=== PATIENT | female | born 2000 | race Two or more races ===

== ENCOUNTER 2020-04-13 13:19 | Emergency (ER) | payer MEDICAID, SELFPAY ==
[2020-04-13 14:59] VITALS: BP 123/67; PULSE 93; RESP 18; TEMP 36.8; O2SAT 99; BMI 41.5
--- NOTE | 2020-04-13 16:39 | ED.FEMALEGU ---
HPI - Female Genitourinary General Chief complaint: Vaginal Bleeding Stated complaint: VAGINAL BLEED Time Seen by Provider: 04/13/20 16:03 Source: patient Mode of arrival: ambulatory Limitations: no limitations History of Present Illness HPI Narrative: Patient is a 20-year-old female with no significant past medical history who says she has had bleeding for the last 6 weeks with many clots she states the flow is heavy with clots and then will be very light the next day and waxes and wanes. She denies any abdominal pain, abnormal discharge or fevers. She states she has been extremely fatigued for the last few days. She spoke with her ob-prototype fabricator doctor and he recommended she come in for an evaluation. She does not use control and states her and her are trying to get but she has been unsuccessful. Denies any knowledge of current . She believes she is in a monogamous relationship with her but would like to be tested for STIs today, just in case . She denies any urinary symptoms nausea vomiting or diarrhea. Related Data Allergies Allergy/AdvReac Type Severity Reaction Status Date / Time No Known Allergies Allergy Verified 04/13/20 14:57 [No Known Allergies*] Review of Systems Review of Systems: Yes all other systems are reviewed and are negative [facility] Past Medical History Medical History No known health problems Social History Social History Alcohol intake: never Smoking Status: Never smoker Use of substances other than those prescribed or required for medical reasons: Yes Substance Use Type: Marijuana Advance Directives: No Advance Directives Information Provided: No Physical Exam Vital Signs: Vital Signs: Last Vital Signs Temp 98.5 F 04/13/20 17:30 Pulse 92 04/13/20 17:30 Resp 20 04/13/20 17:30 BP 118/69 04/13/20 17:30 Pulse Ox 98 04/13/20 17:30 Body Mass Index 41.5 Const: General: cooperative, healthy appearing, comfortable and no acute distress Nutritional Appearance: obese Orientation/consciousness: patient oriented x3 Limitations: no limitations Eyes: General: appearance normal, both eyes and all related structures Neck: Neck: Yes normal visual inspection, Yes full ROM and Yes supple Resp: Effort & Inspection: normal respiratory effort and able to speak in complete sentences GI: Inspection: Yes obesity Palpation (GI): Soft to palpation and nontender Auscultation: normal bowel sounds : External Female Exam: normal external appearance and normal appearance of the urethra Speculum Exam - Vagina: normal appearance of the vagina, normal vaginal discharge and vaginal bleeding (scant) Speculum Exam - Cervix: normal appearance of the cervix Skin: General skin exam: no rashes or lesions noted Neuro: General: patient oriented x3 Extrem: General: Yes normal to inspection, Yes full ROM and Yes no pedal edema MDM - Female Genitourinary Lab Data Result diagrams: 04/13/20 17:28 04/13/20 17:27 Labs: Lab Results 04/13/20 04/13/20 04/13/20 Range/Units 17:27 17:27 17:28 WBC 16.1 H (4.8-10.8) X10*3/uL RBC 4.91 (4.20-5.50) X10*6/uL Hgb 13.2 (12.0-16.0) g/dl Hct 41.0 (37-47) % MCV 83.5 (80-98) fL MCH 26.9 L (27.0-33.0) pg MCHC 32.2 (31.0-35.0) g/dl RDW 13.7 (11.0-16.0) % Plt Count 400 (160-400) X10*3/uL MPV 9.2 L (9.4-12.3) fL Immature Gran % (Auto) 0.3 (0.0-0.4) % Neut % (Auto) 62.5 (45-73) % Lymph % (Auto) 31.7 (20-40) % [place] % (Auto) 4.3 (2-11) % Eos % (Auto) 1.0 (0-4) % Baso % (Auto) 0.2 (0-2) % Lymph # (Auto) 5.1 H (1.2-4.9) X10*3/uL [place] # (Auto) 0.7 (0.1-1.2) X10*3/uL Eos # (Auto) 0.2 (0.0-0.4) X10*3/uL Baso # (Auto) 0.0 (0.0-0.2) X10*3/uL Abs Immat Gran (auto) 0.05 H (0.00-0.03) X10*3/uL Absolute Neuts (auto) 10.0 H (2.0-8.3) X10*3/uL Absolute Nucleated RBC 0.000 (0.0-0.012) X10*3/uL Nucleated RBC % (auto) 0.0 (0.0-0.2) /100WBC Smear Tech's Comments VERIFIED Sodium 138 (135-145) mmol/L Potassium 4.3 (3.3-5.1) mmol/L Chloride 105 (96-108) mmol/L Carbon Dioxide 24 (22-29) mmol/L Anion Gap 13 (12-20) BUN 11 (9-16) mg/dL Creatinine 0.56 (0.5-1.4) mg/dL Estim Creat Clear Calc 213.3 Estimated GFR > 60 Random Glucose 77 (60-115) mg/dL Calcium 9.3 (8.4-10.2) mg/dL Beta HCG, Quant < 2 mIU/mL Urine Test (NEGATIVE) Blood Type O Positive Antibody Screen NEGATIVE 04/13/20 Range/Units 17:28 WBC (4.8-10.8) X10*3/uL RBC (4.20-5.50) X10*6/uL Hgb (12.0-16.0) g/dl Hct (37-47) % MCV (80-98) fL MCH (27.0-33.0) pg MCHC (31.0-35.0) g/dl RDW (11.0-16.0) % Plt Count (160-400) X10*3/uL MPV (9.4-12.3) fL Immature Gran % (Auto) (0.0-0.4) % Neut % (Auto) (45-73) % Lymph % (Auto) (20-40) % [place] % (Auto) (2-11) % Eos % (Auto) (0-4) % Baso % (Auto) (0-2) % Lymph # (Auto) (1.2-4.9) X10*3/uL [place] # (Auto) (0.1-1.2) X10*3/uL Eos # (Auto) (0.0-0.4) X10*3/uL Baso # (Auto) (0.0-0.2) X10*3/uL Abs Immat Gran (auto) (0.00-0.03) X10*3/uL Absolute Neuts (auto) (2.0-8.3) X10*3/uL Absolute Nucleated RBC (0.0-0.012) X10*3/uL Nucleated RBC % (auto) (0.0-0.2) /100WBC Smear Tech's Comments Sodium (135-145) mmol/L Potassium (3.3-5.1) mmol/L Chloride (96-108) mmol/L Carbon Dioxide (22-29) mmol/L Anion Gap (12-20) BUN (9-16) mg/dL Creatinine (0.5-1.4) mg/dL Estim Creat Clear Calc Estimated GFR Random Glucose (60-115) mg/dL Calcium (8.4-10.2) mg/dL Beta HCG, Quant mIU/mL Urine Test NEGATIVE (NEGATIVE) Blood Type Antibody Screen Discharge Plan Discharge Clinical Impression: Vaginal bleeding Patient Disposition: Home, Self-Care Instructions: Dysfunctional Uterine Bleeding (ED) Additional Instructions: Your blood levels are within normal limits, please continue to monitor your bleeding and if your soaking more than a pad an hour, please return to the emergency department. Today, we have tested you for gonorrhea, chlamydia, bacterial vaginosis, yeast and Trichomonas, if any of these tests are positive we will call you and send in prescriptions. If you do not receive a phone call, it means all of these tests are negative. Please be sure to follow-up with your manufacturing mechanic regarding your bleeding. Also, as we discussed, you should start taking folic acid and vitamin daily if you are trying to become . Your manufacturing mechanic or primary care doctor can prescribe the folic acid for you. Interventions: ED Discharge Assessment Last Done: 04/13/20 18:41
[2020-04-13 17:30] VITALS: BP 118/69; PULSE 92; RESP 20; TEMP 36.9; O2SAT 98
[2020-04-13 17:42] LABS: Basophils Percent Auto 0.2 % (0-2); Eosinophils Absolute Auto 0.2 X10*3/uL (0.0-0.4); Hemoglobin 13.2 g/dl (12.0-16.0); Imm Gran Abs Auto 0.05 X10*3/uL (0.00-0.03); Imm Gran Pct Auto 0.3 % (0.0-0.4); Lymphocytes Absolute Auto 5.1 X10*3/uL (1.2-4.9); Lymphocytes Percent Auto 31.7 % (20-40); MANUAL DIFF FLAG SCAN; Mean Corpuscular HGB Conc 32.2 g/dl (31.0-35.0); Mean Corpuscular Hemoglobin 26.9 pg (27.0-33.0); Mean Corpuscular Volume 83.5 fL (80-98); Mean Platelet Volume 9.2 fL (9.4-12.3); Monocytes Absolute Auto 0.7 X10*3/uL (0.1-1.2); Monocytes Percent Auto 4.3 % (2-11); Neutrophils Percent Auto 62.5 % (45-73); Platelet Count 400 X10*3/uL (160-400); Red Blood Count 4.91 X10*6/uL (4.20-5.50); Red Cell Distribution Width 13.7 % (11.0-16.0); SCAN SMEAR FLAG 1; White Blood Count 16.1 X10*3/uL (4.8-10.8)
[2020-04-13 17:43] LABS: UPreg QC Valid YES; Urine Pregnancy NEGATIVE (NEGATIVE)
[2020-04-13 18:01] LABS: SLIDE REVIEW VERIFIED
[2020-04-13 18:13] LABS: Anion Gap 13 (12-20); Blood Urea Nitrogen 11 mg/dL (9-16); Calcium 9.3 mg/dL (8.4-10.2); Carbon Dioxide 24 mmol/L (22-29); Chloride 105 mmol/L (96-108); Creatinine Clr Calc Pharmacy 213.3; Estimated Glomerular Filt Rate > 60; Glucose Random 77 mg/dL (60-115); Potassium 4.3 mmol/L (3.3-5.1); Sodium 138 mmol/L (135-145)
[2020-04-13 18:24] LABS: HCG Quantitative < 2 mIU/mL
[2020-04-14 11:28] LABS: BV Int Neg Control Negative (Negative); BV Int Pos Control Positive (Positive)
[2020-04-16 17:21] LABS: C. trachomatis RNA TMA NOT DETECTED (NOT DETECTED); N. gonorrhoeae RNA TMA NOT DETECTED (NOT DETECTED)
== END 2020-04-13 18:58 | disposition home or self-care (01) ==
PROVIDERS: Physician Assistant; Emergency Provider Emergency Medicine Emergency Medical Services
DX: N93.8 Other specified abnormal uterine and vaginal bleeding (principal); Z20.2 Contact with and (suspected) exposure to infections with a predominantly sexual mode of transmission
CPT/HCPCS: 36415; 80048; 81025; 84702; 85025; 86850; 86900; 86901; 87480; 87491; 87510; 87591; 87660; 99283; 99284

== ENCOUNTER 2021-09-10 15:44 | Emergency (ER) | payer MEDICAID, SELFPAY ==
[2021-09-10 16:18] VITALS: BP 152/90; PULSE 88; O2SAT 100
== END 2021-09-10 22:03 | disposition left against medical advice (07) ==
PROVIDERS: Emergency Provider Emergency Medicine
DX: R10.9 Unspecified abdominal pain (principal)

== ENCOUNTER 2021-09-11 10:11 | Emergency (ER) | payer OTHER, SELFPAY ==
--- NOTE | ~2021-09-11 | US_ITS ---
EXAMINATION: US PELVIS CLINICAL INFORMATION: Right-sided abdominal pain, right adnexal cyst COMPARISON: CT from 09/11/2021 TECHNIQUE: Ultrasound of the pelvis is performed using both transabdominal and transvaginal transducers along with Doppler. Transvaginal imaging is performed due to inadequate visualization transabdominally. FINDINGS: Uterus: The uterus is retroverted and measures 8.0 x 3.6 x 5.9 cm. Parenchymal echotexture is homogeneous. No discrete mass lesion seen. The double wall endometrial thickness is 9 mm. Adnexa: Both ovaries are visualized. There is normal color flow to the adnexa. There is no ovarian torsion. There is no pelvic ascites There is a cystic tubular structure with anechoic fluid in the right adnexa concerning for hydrosalpinx Right ovary measures 4.0 x 1.8 x 3.0 cm. Right ovary appears sonographically normal Left ovary measures 3.3 x 2.5 x 2.9 cm. Left ovary appears sonographically normal US/US pelvic and transvaginal IMPRESSION: Dilated cystic tubular structure in the right adnexa with a anechoic fluid concerning for right hydrosalpinx. The right ovary appears normal. No complex fluid collection is seen otherwise. Uterus and left ovary are normal
--- NOTE | ~2021-09-11 | US_ITS ---
EXAMINATION: US PELVIS CLINICAL INFORMATION: Right-sided abdominal pain, right adnexal cyst COMPARISON: CT from 09/11/2021 TECHNIQUE: Ultrasound of the pelvis is performed using both transabdominal and transvaginal transducers along with Doppler. Transvaginal imaging is performed due to inadequate visualization transabdominally. FINDINGS: Uterus: The uterus is retroverted and measures 8.0 x 3.6 x 5.9 cm. Parenchymal echotexture is homogeneous. No discrete mass lesion seen. The double wall endometrial thickness is 9 mm. Adnexa: Both ovaries are visualized. There is normal color flow to the adnexa. There is no ovarian torsion. There is no pelvic ascites There is a cystic tubular structure with anechoic fluid in the right adnexa concerning for hydrosalpinx Right ovary measures 4.0 x 1.8 x 3.0 cm. Right ovary appears sonographically normal Left ovary measures 3.3 x 2.5 x 2.9 cm. Left ovary appears sonographically normal US/US pelvic ovarian doppler IMPRESSION: Dilated cystic tubular structure in the right adnexa with a anechoic fluid concerning for right hydrosalpinx. The right ovary appears normal. No complex fluid collection is seen otherwise. Uterus and left ovary are normal
--- NOTE | ~2021-09-11 | CT_ITS ---
EXAMINATION: CT ABDOMEN AND PELVIS WITHOUT CONTRAST CLINICAL INFORMATION: Right flank pain. COMPARISON: September 13, 2015. TECHNIQUE: Multidetector volumetric imaging was performed from the superior aspect of the liver through the pubic symphysis. Sagittal and coronal reformatted images were obtained on the technologist's workstation. This CT examination was performed using dose optimization techniques as appropriate, variously including the following: *Automated exposure control *Adjustment of mA and/or kV according to patient size (this includes techniques or standardized protocols for targeted exams where dose is matched to indication/reason for exam; i.e. extremities or head) *Use of iterative reconstruction technique DLP: 964 mGy-cm FINDINGS: LUNG BASES: The visualized lung bases appear unremarkable. LIVER, GALLBLADDER, AND BILIARY TREE: Diffusely hypodense liver parenchyma, consistent with fatty infiltration. The liver appears unremarkable in size and shape. No focal hepatic lesion or biliary ductal dilatation is appreciated. Unremarkable appearance of the gallbladder. PANCREAS: Unremarkable. SPLEEN: Unremarkable. ADRENAL GLANDS: Unremarkable. KIDNEYS AND URETERS: The kidneys appear unremarkable in size, shape, and attenuation. No hydronephrosis, hydroureter, or calculi seen. BLADDER: Collapsed, therefore suboptimally evaluated. Grossly unremarkable. GASTROINTESTINAL TRACT: The small and large bowel appear unremarkable. ABDOMINAL WALL: No significant hernia is appreciated. LYMPH NODES: Normal. VASCULAR: Unremarkable. PELVIC VISCERA: Approximately 4.4 x 3.8 x 2.5 cm, ovoid, homogeneous, fluid-density structure in the right adnexal region demonstrating significant induration of surrounding fat. In retrospect, this structure was probably present in 2015, at which time it measured approximately 3.4 x 1.4 x 1.2 cm and did not demonstrate induration of surrounding fat. This structure appears separate from the ovary, and only obliquely appears to contact the sigmoid colon. It does not clearly appear contiguous with the appendix. Peritoneal cavity: No evidence of free intraperitoneal fluid or air. OSSEOUS STRUCTURES: Unremarkable. CT/CT abdomen pelvis wo con IMPRESSION: Approximately 4.4 x 3.8 x 2.5 cm, ovoid, homogeneous, fluid-density structure in the right adnexal region demonstrating significant induration of surrounding fat, consistent with an acute inflammatory process, as detailed above. The exact etiology of this finding is uncertain. Differential diagnosis includes, but is not limited to, tubo-ovarian abscess, diverticulitis with secondary infection of previously existing cystic structure, etc.
[2021-09-11 10:53] VITALS: BP 117/79; PULSE 97; RESP 18; TEMP 36.3; O2SAT 98; BMI 40.6
[2021-09-11 11:12] LABS: MANUAL DIFF FLAG NO
[2021-09-11 11:17] LABS: Basophils Percent Auto 0.2 % (0-2); Eosinophils Absolute Auto 0.1 X10*3/uL (0.0-0.4); Eosinophils Percent Auto 0.5 % (0-4); Imm Gran Abs Auto 0.04 X10*3/uL (0.00-0.03); Imm Gran Pct Auto 0.3 % (0.0-0.4); Lymphocytes Absolute Auto 3.4 X10*3/uL (1.2-4.9); Lymphocytes Percent Auto 22.3 % (20-40); Mean Corpuscular HGB Conc 31.7 g/dl (31.0-35.0); Mean Corpuscular Hemoglobin 25.2 pg (27.0-33.0); Mean Corpuscular Volume 79.5 fL (80.0-98.0); Mean Platelet Volume 8.7 fL (9.4-12.3); Monocytes Absolute Auto 0.9 X10*3/uL (0.1-1.2); Monocytes Percent Auto 5.8 % (2-11); Neutrophils Absolute Auto 10.9 x10*3/uL (2.0-8.3); Neutrophils Percent Auto 70.9 % (45-73); Platelet Count 439 X10*3/uL (160-400); Red Blood Count 5.16 X10*6/uL (4.20-5.50); White Blood Count 15.4 X10*3/uL (4.8-10.8)
[2021-09-11 11:20] LABS: Appearance Urine HAZY; Color Urine YELLOW; Glucose Urine UA NEG (NEG); Leukocyte Esterase Urine NEG (NEG); Nitrite Urine NEG (NEG); Specific Gravity - Urine 1.025 (1.005-1.025); UACC Culture Trigger NO; Urine Blood NEG (NEG); Urine Ketones 15 MG/DL (NEG); Urine Protein 1+ MG/DL (NEG-TRACE)
--- NOTE | 2021-09-11 11:20 | ED_ITS ---
HPI - Abdominal Pain General Chief Complaint: Abdominal Pain Stated Complaint: leg pain, abd pain Time Seen by Provider: 09/11/21 11:18 Source: patient Mode of arrival: ambulatory Limitations: no limitations History of Present Illness HPI narrative: 21-year-old female previously healthy here with reports of right-sided flank and lower back pain with radiation to the right lower abdomen and down into the right leg the last 4 days which has some improvement with ibuprofen at home. Patient denies any nausea, vomiting, diarrhea, constipation, urinary symptoms, fevers or chills. Seen at urgent care yesterday referred into the emergency department for further evaluation. No previous surgical history. Related Data Previous Rx's Medication Instructions Recorded doxycycline monohydrate 100 mg 100 mg PO BID #14 tabs 09/11/21 tablet ibuprofen 800 mg tablet 800 mg PO Q6H PRN pain #30 tabs 09/11/21 metronidazole 500 mg tablet 500 mg PO BID 7 days #14 tabs 09/11/21 Allergies Allergy/AdvReac Type Severity Reaction Status Date / Time No Known Allergies Allergy Verified 09/11/21 10:53 [No Known Allergies*] Review of Systems Review of Systems Yes all other systems are reviewed and are negative Constitutional: Reports no additional constitutional complaints, Denies body ache(s), Denies chills, Denies fever(s), Denies headache(s) and Denies weakness Eyes: Reports no additional eye complaints and Denies change in vision Reports system reviewed and no additional complaints, except as documented, Denies dizziness, Denies headache(s), Denies nasal congestion, Denies nasal discharge and Denies neck pain Cardiovascular: Reports no additional cardiovascular complaints, Denies chest pain, Denies leg edema and Denies dyspnea Respiratory: Reports no additional respiratory complaints, Denies cough and Denies dyspnea Gastrointestinal: Reports no additional gastrointestinal complaints, Reports abdominal pain, Denies diarrhea, Denies nausea and Denies vomiting Genitourinary: Reports no additional female genitourinary complaints and Denies urinary incontinence Musculoskeletal: Reports no additional musculoskeletal complaints, Reports back pain, Denies arthralgias, Denies joint swelling, Denies neck pain, Denies numbness and Denies tingling Skin/Breast: Reports system reviewed and no additional complaints, except as docu and Denies rash Reports system reviewed and no additional complaints, except as documented, Denies dizziness, Denies headache(s), Denies numbness, Denies tingling and Denies weakness PMF Past Medical History Attestation statement: The following information was validated with the patient. Source: old records reviewed and nursing notes reviewed Medical History No known health problems Social History Social History Alcohol intake: never Substance Use Type: Marijuana Advance Directives: No Advance Directives Information Provided: Yes Physical Exam ED Vital Signs: Vital Signs - 24 hr 09/11/21 10:53 Temperature 97.4 F Pulse Rate 97 Respiratory Rate 18 Blood Pressure 117/79 Pulse Oximetry 98 Oxygen Delivery Method Room Air BMI result Body Mass Index 40.6 Const General: cooperative, healthy appearing, comfortable and no acute distress Orientation/consciousness: patient oriented x3 Limitations: no limitations HENMT Head: Yes normal to inspection Ears: hearing grossly normal bilaterally Eyes General: appearance normal, both eyes and all related structures Pupils: Equal, round and reactive pupils present Neck Neck: Yes normal visual inspection, Yes full ROM and Yes no lymphadenopathy Chest Chest palpation & inspection: normal inspection of the chest Resp Effort & Inspection: normal respiratory effort Auscultation: clear to auscultation bilaterally Cardio Rate: regular rate Rhythm: regular rhythm Peripheral pulses: Peripheral pulses 2+ throughout GI Inspection: Yes normal to inspection Palpation (GI): Soft to palpation and Tenderness to palpation present (GI) (Umbilicus, right lower quadrant-+ guarding no rebound) Auscultation: normal bowel sounds 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 Back: no CVA tenderness Skin General skin exam: no rashes or lesions noted Neuro General: patient oriented x3 and moves all extremities Cranial nerves: Yes CN's II-XII intact bilaterally, Yes Equal, round and reactive pupils present, Yes Bilaterally intact EOM present, Yes Nystagmus not present, Yes Normal facial strength present and Yes Midline tongue present Cognition (Neuro): normal cognition Gait exam (Neuro): Normal gait present Motor exam (neuro): 5/5 motor strength present throughout Sensory Exam: Normal double simultaneous stimulation for sensation Extrem General: Yes normal to inspection Course Reevaluation(s) Reevaluation #1: CT without contrast shows Approximately 4.4 x 3.8 x 2.5 cm, ovoid, homogeneous, fluid-density structure in the right adnexal region demonstrating significant induration of surrounding fat, consistent with an acute inflammatory process, as detailed above. The exact etiology of this finding is uncertain. Differential diagnosis includes, but is not limited to, tubo-ovarian abscess, diverticulitis with secondary infection of previously existing cystic structure, etc. Unclear network support technician versus General surgery origin. Will discuss with [facility]. With labs leukocytosis chronic. Otherwise labs unremarkable. UA shows no signs of infection Time: 14:40 Reevaluation #2: I spoke to Dr. Peter from Radiology. Recommended pelvic ultrasound i ncluding Dopplers to rule out torsion and to evaluate the adnexal mass further. Will also obtain a pelvic exam and send STI testing and speak to gynecology Reevaluation #3: [id number] shows a right hydrosalpinx. Patient will be treated prophylactically with ceftriaxone IM. I will send her home with doxycycline and Flagyl. I will recommend she follow up outpatient with gynecology. Pain is well controlled. Leukocytosis is chronic. No vomiting. She should return for any worrisome signs and symptoms MDM - Abdominal Pain MDM Narrative Medical decision making narrative: 21-year-old female here with 4 days of intermittent right-sided back pain with radiation down the right leg and into the right abdomen. No other associated symptoms. Normal neurological exam. No red flag symptoms or deficits. On exam patient has have right-sided abdominal pain with some guarding but no rebound. No right CVA tenderness. She does have some right lumbar soft tissue tenderness with no step-offs deformities over the mid spine. Will check labs, UA, CT Differential Diagnosis Differential diagnosis narrative:: Renal colic, pyelonephritis, appendicitis, lumbar radiculopathy, PID Medical Records Attestation: I reviewed the patient's medical records. Lab Data Attestation: I reviewed the patient's lab results. Result diagrams: 09/11/21 11:07 09/11/21 11:04 Labs: Lab Results 09/11/21 09/11/21 09/11/21 Range/Units 11:04 11:07 11:14 WBC 15.4 H (4.8-10.8) X10*3/uL RBC 5.16 (4.20-5.50) X10*6/uL Hgb 13.0 (12.0-16.0) g/dl Hct 41.0 (37.0-47.0) % MCV 79.5 L (80.0-98.0) fL MCH 25.2 L (27.0-33.0) pg MCHC 31.7 (31.0-35.0) g/dl RDW 15.0 (11.0-16.0) % Plt Count 439 H (160-400) X10*3/uL MPV 8.7 L (9.4-12.3) fL Immature Gran % (Auto) 0.3 (0.0-0.4) % Neut % (Auto) 70.9 (45-73) % Lymph % (Auto) 22.3 (20-40) % [place] % (Auto) 5.8 (2-11) % Eos % (Auto) 0.5 (0-4) % Baso % (Auto) 0.2 (0-2) % Lymph # (Auto) 3.4 (1.2-4.9) X10*3/uL [place] # (Auto) 0.9 (0.1-1.2) X10*3/uL Eos # (Auto) 0.1 (0.0-0.4) X10*3/uL Baso # (Auto) 0.0 (0.0-0.2) X10*3/uL Abs Immat Gran (auto) 0.04 H (0.00-0.03) X10*3/uL Absolute Neuts (auto) 10.9 H (2.0-8.3) x10*3/uL Absolute Nucleated RBC 0.000 (0.0-0.012) X10*3/uL Nucleated RBC % (auto) 0.0 (0.0-0.2) /100WBC Sodium 137 (135-145) mmol/L Potassium 4.2 (3.3-5.1) mmol/L Chloride 108 (96-108) mmol/L Carbon Dioxide 21 L (22-29) mmol/L Anion Gap 12 (12-20) BUN 12 (9-16) mg/dL Creatinine 0.65 (0.5-1.4) mg/dL Estim Creat Clear Calc 180.1 Estimated GFR > 60 Random Glucose 108 (60-115) mg/dL Calcium 9.1 (8.4-10.2) mg/dL Total Bilirubin 0.7 (0.0-1.0) mg/dL AST 15 (5-31) U/L ALT 11 (0-31) U/L Alkaline Phosphatase 96 (39-117) U/L Total Protein 7.5 (6.5-8.0) g/dL Albumin 4.2 (3.5-5.0) g/dL Lipase 14 (8-78) U/L Urine Color YELLOW Urine Appearance HAZY Urine pH 6.0 (5.0-8.0) Ur Specific [place] 1.025 (1.005-1.025) Urine Protein 1+ H (NEG-TRACE) MG/DL Urine Glucose (UA) NEG (NEG) MG/DL Urine Ketones 15 (NEG) MG/DL Urine Blood NEG (NEG) Urine Nitrite NEG (NEG) Ur Leukocyte Esterase NEG (NEG) Urine RBC 0-2 (0) /HPF Urine WBC 0 (0-4) /HPF Ur Squamous Epith Cells 4+ /LPF Urine Bacteria NONE /LPF Urine Mucus 1+ /LPF Urine Test (NEGATIVE) 09/11/21 Range/Units 11:14 WBC (4.8-10.8) X10*3/uL RBC (4.20-5.50) X10*6/uL Hgb (12.0-16.0) g/dl Hct (37.0-47.0) % MCV (80.0-98.0) fL MCH (27.0-33.0) pg MCHC (31.0-35.0) g/dl RDW (11.0-16.0) % Plt Count (160-400) X10*3/uL MPV (9.4-12.3) fL Immature Gran % (Auto) (0.0-0.4) % Neut % (Auto) (45-73) % Lymph % (Auto) (20-40) % [place] % (Auto) (2-11) % Eos % (Auto) (0-4) % Baso % (Auto) (0-2) % Lymph # (Auto) (1.2-4.9) X10*3/uL [place] # (Auto) (0.1-1.2) X10*3/uL Eos # (Auto) (0.0-0.4) X10*3/uL Baso # (Auto) (0.0-0.2) X10*3/uL Abs Immat Gran (auto) (0.00-0.03) X10*3/uL Absolute Neuts (auto) (2.0-8.3) x10*3/uL Absolute Nucleated RBC (0.0-0.012) X10*3/uL Nucleated RBC % (auto) (0.0-0.2) /100WBC Sodium (135-145) mmol/L Potassium (3.3-5.1) mmol/L Chloride (96-108) mmol/L Carbon Dioxide (22-29) mmol/L Anion Gap (12-20) BUN (9-16) mg/dL Creatinine (0.5-1.4) mg/dL Estim Creat Clear Calc Estimated GFR Random Glucose (60-115) mg/dL Calcium (8.4-10.2) mg/dL Total Bilirubin (0.0-1.0) mg/dL AST (5-31) U/L ALT (0-31) U/L Alkaline Phosphatase (39-117) U/L Total Protein (6.5-8.0) g/dL Albumin (3.5-5.0) g/dL Lipase (8-78) U/L Urine Color Urine Appearance Urine pH (5.0-8.0) Ur Specific [place] (1.005-1.025) Urine Protein (NEG-TRACE) MG/DL Urine Glucose (UA) (NEG) MG/DL Urine Ketones (NEG) MG/DL Urine Blood (NEG) Urine Nitrite (NEG) Ur Leukocyte Esterase (NEG) Urine RBC (0) /HPF Urine WBC (0-4) /HPF Ur Squamous Epith Cells /LPF Urine Bacteria /LPF Urine Mucus /LPF Urine Test NEGATIVE (NEGATIVE) Imaging Data CT scan - abdomen: Attestation: I personally reviewed and interpreted this imaging study as follows: Radiologist's impression: FINDINGS: LUNG BASES: The visualized lung bases appear unremarkable.? LIVER, GALLBLADDER, AND BILIARY TREE: Diffusely hypodense liver parenchyma, consistent with fatty infiltration. The liver appears unremarkable in size and shape. No focal hepatic lesion or biliary ductal dilatation is appreciated. Unremarkable appearance of the gallbladder.? PANCREAS: Unremarkable.? SPLEEN: Unremarkable.? ADRENAL GLANDS: Unremarkable.? KIDNEYS AND URETERS: The kidneys appear unremarkable in size, shape, and attenuation. No hydronephrosis, hydroureter, or calculi seen. BLADDER: Collapsed, therefore suboptimally evaluated. Grossly unremarkable.? GASTROINTESTINAL TRACT: The small and large bowel appear unremarkable. ABDOMINAL WALL: No significant hernia is appreciated.? LYMPH NODES: Normal. VASCULAR: Unremarkable. PELVIC VISCERA: Approximately 4.4 x 3.8 x 2.5 cm, ovoid, homogeneous, fluid-density structure in the right adnexal region demonstrating significant induration of surrounding fat. In retrospect, this structure was probably present in 2015, at which time it measured approximately 3.4 x 1.4 x 1.2 cm and did not demonstrate induration of surrounding fat. This structure appears separate from the ovary, and only obliquely appears to contact the sigmoid colon. It does not clearly appear contiguous with the appendix. Peritoneal cavity: No evidence of free intraperitoneal fluid or air.? OSSEOUS STRUCTURES: Unremarkable.? CT/CT abdomen pelvis wo con IMPRESSION: ? Approximately 4.4 x 3.8 x 2.5 cm, ovoid, homogeneous, fluid-density structure in the right adnexal region demonstrating significant induration of surrounding fat, consistent with an acute inflammatory process, as detailed above. The exact etiology of this finding is uncertain. Differential diagnosis includes, but is not limited to, tubo-ovarian abscess, diverticulitis with secondary infection of previously existing cystic structure, etc. US - abdomen: Attestation: I personally reviewed and interpreted this imaging study as follows: Radiologist's impression: [address] [address] Ultrasound Report Signed Patient: Jaquelin Pinedo MR#: [id number] : 2000 Acct:[id number] Age/Sex: 21 / F ADM Date: 09/11/21 Loc: HO.ED Attending Dr: Ordering Physician: Madiha Miles NP Date of Service: 09/11/21 Procedure(s): US pelvic ovarian doppler Accession Number(s): [id number] cc: Madiha Miles NP~ EXAMINATION:? US PELVIS CLINICAL INFORMATION:? Right-sided abdominal pain, right adnexal cyst COMPARISON: CT from 09/11/2021 TECHNIQUE: Ultrasound of the pelvis is performed using both transabdominal and transvaginal transducers along with Doppler. Transvaginal imaging is performed due to inadequate visualization transabdominally. FINDINGS: Uterus: The uterus is retroverted and measures 8.0 x 3.6 x 5.9 cm.? Parenchymal echotexture is homogeneous. No discrete mass lesion seen. The double wall endometrial thickness is 9 mm.? Adnexa: Both ovaries are visualized. There is normal color flow to the adnexa. There is no ovarian torsion.? There is no pelvic ascites? There is a cystic tubular structure with anechoic fluid in the right adnexa concerning for hydrosalpinx Right ovary measures 4.0 x 1.8 x 3.0 cm. Right ovary appears sonographically normal Left ovary measures 3.3 x 2.5 x 2.9 cm. Left ovary appears sonographically normal US/US pelvic ovarian doppler IMPRESSION: Dilated cystic tubular structure in the right adnexa with a anechoic fluid concerning for right hydrosalpinx. The right ovary appears normal. No complex fluid collection is seen otherwise. ? Uterus and left ovary are normal pelvic US: Attestation: I personally reviewed and interpreted this imaging study as follows: Radiologist's impression: [place] [address] Ultrasound Report Signed Patient: Jaquelin Pinedo MR#: [id number] : 2000 Acct:[id number] Age/Sex: 21 / F ADM Date: 09/11/21 Loc: .ED Attending Dr: Ordering Physician: Madiha Miles NP Date of Service: 09/11/21 Procedure(s): US pelvic and transvaginal Accession Number(s): [id number] cc: Madiha Miles NP~ EXAMINATION:? US PELVIS CLINICAL INFORMATION:? Right-sided abdominal pain, right adnexal cyst COMPARISON: CT from 09/11/2021 TECHNIQUE: Ultrasound of the pelvis is performed using both transabdominal and transvaginal transducers along with Doppler. Transvaginal imaging is performed due to inadequate visualization transabdominally. FINDINGS: Uterus: The uterus is retroverted and measures 8.0 x 3.6 x 5.9 cm.? Parenchymal echotexture is homogeneous. No discrete mass lesion seen. The double wall endometrial thickness is 9 mm.? Adnexa: Both ovaries are visualized. There is normal color flow to the adnexa. There is no ovarian torsion.? There is no pelvic ascites? There is a cystic tubular structure with anechoic fluid in the right adnexa concerning for hydrosalpinx Right ovary measures 4.0 x 1.8 x 3.0 cm. Right ovary appears sonographically normal Left ovary measures 3.3 x 2.5 x 2.9 cm. Left ovary appears sonographically normal US/US pelvic and transvaginal IMPRESSION: Dilated cystic tubular structure in the right adnexa with a anechoic fluid concerning for right hydrosalpinx. The right ovary appears normal. No complex fluid collection is seen otherwise. ? Uterus and left ovary are normal Discharge Plan Discharge Clinical Impression: Hydrosalpinx, Acute pelvic inflammatory disease (PID) Patient Disposition: Home, Self-Care Instructions: Pelvic Inflammatory Disease (DC) Additional Instructions: Your right fallopian tube it is inflamed. This can happen if you had a previous infection or you have a current infection. We are treating you with antibiotics. We tested for STDs. These results take several days and we will call you if they are positive. Follow-up with gynecology Return for fever, vomiting, worsening pain Prescriptions: New doxycycline monohydrate 100 mg tablet 100 mg PO BID Qty: 14 0RF metronidazole 500 mg tablet 500 mg PO BID 7 Days Qty: 14 0RF ibuprofen 800 mg tablet 800 mg PO Q6H PRN (Reason: pain) Qty: 30 0RF Referrals: Aleks Howe MD [Physician] - Interventions: ED Discharge Assessment Last Done: 09/11/21 17:05 Discharge Date/Time: 09/11/21 17:06
[2021-09-11 11:40] LABS: Alanine Aminotransferase 11 U/L (0-31); Albumin Level 4.2 g/dL (3.5-5.0); Alkaline Phosphatase 96 U/L (39-117); Anion Gap 12 (12-20); Aspartate Amino Transferase 15 U/L (5-31); Bilirubin Total 0.7 mg/dL (0.0-1.0); Blood Urea Nitrogen 12 mg/dL (9-16); Calcium 9.1 mg/dL (8.4-10.2); Carbon Dioxide 21 mmol/L (22-29); Chloride 108 mmol/L (96-108); Creatinine Clr Calc Pharmacy 180.1; Estimated Glomerular Filt Rate > 60; Glucose Random 108 mg/dL (60-115); Potassium 4.2 mmol/L (3.3-5.1); Sodium 137 mmol/L (135-145); Total Protein 7.5 g/dL (6.5-8.0)
[2021-09-11 11:41] LABS: RBC Urine 0-2 /HPF (0); Squamous Epithelial Cell Urine 4+ /LPF; WBC Urine 0 /HPF (0-4)
[2021-09-11 11:42] LABS: Mucus Urine 1+ /LPF
[2021-09-11] MEDS: Ibuprofen 800 MG TABLET PO (11:52)
[2021-09-11 12:30] LABS: Lipase 14 U/L (8-78)
[2021-09-11 12:49] LABS: UPreg QC Valid YES; Urine Pregnancy NEGATIVE (NEGATIVE)
[2021-09-11] MEDS: cefTRIAXone sodium 500 MG, Lidocaine HCl 1 % MPF 1 ML IM (17:01)
[2021-09-12 06:49] LABS: CT PCR NOT DETECTED (Not Detect.); NG PCR NOT DETECTED (Not Detect.)
[2021-09-12 11:06] LABS: BV Int Neg Control Negative (Negative); BV Int Pos Control Positive (Positive)
== END 2021-09-11 17:06 | disposition home or self-care (01) ==
PROVIDERS: Nurse Practitioner Family; Emergency Provider Internal Medicine
DX: N70.11 Chronic salpingitis (principal); N73.0 Acute parametritis and pelvic cellulitis; R10.9 Unspecified abdominal pain
CPT/HCPCS: 36415; 74176; 76830; 76856; 80053; 81001; 81025; 83690; 85025; 87480; 87491; 87510; 87591; 87660; 93975; 96372; 99283; 99284; J0696

== ENCOUNTER → 2021-09-16 14:25 | Outpatient (BNVA) | payer OTHER, SELFPAY | PROVIDERS: Visit Provider Advanced Practice Midwife | DX: N73.9 Female pelvic inflammatory disease, unspecified (principal) | CPT/HCPCS: 99212 ==

== ENCOUNTER 2022-11-01 08:26 | Inpatient (IN) | payer OTHER, SELFPAY ==
[2022-11-01] VITALS (16 sets, daily range): BP systolic 92–142; BP diastolic 37–77; PULSE 74–98; RESP 16–20; TEMP 36.1–37.3; O2SAT 91–100; BMI 41.7; BMI 43.8
--- NOTE | ~2022-11-01 | US_ITS ---
EXAMINATION: US ABDOMEN LIMITED CLINICAL INFORMATION: Right upper quadrant pain. COMPARISON: None available. TECHNIQUE: Real-time imaging of the right upper quadrant abdominal viscera. FINDINGS: PANCREAS: The visualized portion of the pancreas head and body are normal, portion of the pancreatic body and tail, not visualized are obscured by bowel gas. LIVER: Macro steatosis, hypoechoic area adjacent to the gallbladder, the location is common for focal fat sparing. The liver is normal in size. The liver contour is normal. No focal hepatic lesion. There is no intrahepatic biliary duct dilatation seen. GALLBLADDER: There is a gallstone 1.3 x 0.6 x 1.7 cm. There is thickening of the gallbladder wall measuring up to 5 mm, trace amount of pericholecystic fluid and tenderness pressing on the gallbladder, combined raising concern for cholecystitis. COMMON BILE DUCT: Normal in caliber measuring 0.3 cm in diameter. RIGHT KIDNEY: Normal. No hydronephrosis. No renal calculi or focal parenchymal lesions. The kidney measures 11.7 cm in maximum dimension. FREE FLUID: None. US/US abdomen limited IMPRESSION: -Concern for possible acute CHOLECYSTITIS, there is large gallstone, there is thickening of the gallbladder wall, there is a trace amount of pericystic fluid and tenderness reported by the uncrater pressing on the gallbladder Flores sign. Surgical evaluation recommended, HIDA scan could be utilized for confirmation if clinically indicated. - Hepatic steatosis. - Hypoechoic area in the liver adjacent to the gallbladder, the location is common for focal fat sparing. (Referring physician staff is being called, by physician staff assistance, to be alerted of the above critical findings and recommendations.) A J 11/01/2022 11:22 AM
--- NOTE | ~2022-11-01 | US_ITS ---
EXAMINATION:US pelvic complete CLINICAL INFORMATION: Reason for Exam right sided abd pain, hx hydrosalpinx COMPARISON: No priors available. FINDINGS: UTERUS: The uterus is anteverted. Size: 8.5 x 4.2 x 5.9 cm. Uterine mass: There is no uterine mass. Cervix: Grossly unremarkable. Endometrium: No ultrasound evidence of endometrial lesion. endometrial thickness measures 1 cm ADNEXA: Normal Right ovary: Normal in size. Cystic structure in the right ovary 3.4 x 2.4 x 2.7 cm. Given its small size, in this patient age group considered normal. No follow-up is indicated. Left ovary: Normal in size. Doppler exam: Normal Doppler flow identified in both ovaries. FREE FLUID: Trace amount of free fluid. OTHER FINDINGS: None US/US pelvic complete IMPRESSION: - Cystic structure in the right ovary 3.4 cm, in this patient age group considered normal. No follow-up is indicated. - Ultrasound otherwise normal.
--- NOTE | 2022-11-01 09:00 | ED_ITS ---
HPI - Female Genitourinary General Chief complaint: Vaginal Bleeding Stated complaint: abd pain/ back pain/ vag bleeding 2x months Time Seen by Provider: 11/01/22 08:33 Source: patient Mode of arrival: ambulatory Limitations: no limitations History of Present Illness HPI Narrative: 22 yo female with history of dysfunctional uterine bleeding, hx right hydrosalpinx presents to the ER for evaluation of heavy vaginal bleeding for the last 2 months. She reports large clots are passing every time she uses the bathroom and she is changing her pad more than once per hour. She has history of irregular menstrual cycles and heavy vaginal bleeding in the past (seen here in 2020 for this). She is followed by [facility] in [place] and when she called them last week to talk about her bleeding, they recommended OCPs which she started last Thursday. She reports lower back pain and right sided abdominal pain that radiates down into her leg. No N/V/D and she is moving her bowels normally. She states the pain in the right pelvic area is crampy and worse at night. The pain in her right upper abdomen has been present for 1 week, worse with eating. No vaginal discharge. No sexual activity in 4 months. She has fatigue and wants to sleep more but denies dizziness, chest pain, SOB, fever, chills. MD elicited complaint: vaginal bleeding and back pain Pertinent past history: PID (hx right hydrosalpinx on U/S 1 year ago, with all STI testing negative) Onset (ago): month(s) Location of symptoms: RLQ and low back Severity: moderate Female Urogenital Radiation: LRQ and R Flank Severity scale (1-10): 7 Quality of pain: cramping Consistency: intermittent Vaginal discharge: none Vaginal bleeding: heavy and clots Urinary symptoms: Urgency and Frequency Exacerbating factors: urination and palpation Relieving factors: none Associated symptoms: abdominal pain and weakness Treatment prior to arrival: none Sexual activity: No Patient : No Related Data Previous Rx's Medication Instructions Recorded doxycycline monohydrate 100 mg 100 mg PO BID #14 tabs 09/11/21 tablet ibuprofen 800 mg tablet 800 mg PO Q6H PRN pain #30 tabs 09/11/21 metronidazole 500 mg tablet 500 mg PO BID 7 days #14 tabs 09/11/21 Allergies Allergy/AdvReac Type Severity Reaction Status Date / Time No Known Allergies Allergy Verified 11/01/22 08:43 [No Known Allergies*] Review of Systems Review of Systems: Yes all other systems are reviewed and are negative [facility] Past Medical History Medical History No known health problems Social History Social History Alcohol intake: never Smoked in Last 30 Days: No Use of substances other than those prescribed or required for medical reasons: No Substance Use Type: Marijuana Advance Directives: No Patient : No Physical Exam Vital Signs: Vital Signs: Last Vital Signs Temp 98 F 11/01/22 09:15 Pulse 83 11/01/22 09:15 Resp 16 11/01/22 09:15 BP 126/76 11/01/22 09:15 Pulse Ox 99 11/01/22 09:15 O2 Del Method Room Air 11/01/22 09:15 BMI result Body Mass Index 41.7 Appearance: Alert. Oriented X3. No acute distress. Head: normocephalic, atraumatic. Eyes: Pupils equal, round and reactive to light. ENT: Pharynx normal. No tonsillar swelling or exudate. Neck: Normal inspection. Neck supple. CVS: Normal heart rate and rhythm. Pulses normal. Respiratory: No respiratory distress. Breath sounds normal. Abdomen: Obese, Soft with tenderness in the RUQ with guarding, no RLQ tenderness. normal active. +BS x4. pelvic deferred Skin: Skin warm and dry. Normal skin color. Normal skin turgor. No rashes. Extremities: No lower extremity edema. No joint swelling. Neuro/psych: Oriented X 3. No motor deficit. No sensory deficit. CN II-XII intact. Normal speech and cognition. Medications Administered Discontinued Medications Generic Name Dose Route Start Last Admin Trade Name Freq PRN Reason Stop Dose Admin Cefuroxime Axetil 250 mg 11/01/22 10:24 11/01/22 10:31 Cefuroxime Axetil 250 Mg Tablet PO 11/01/22 10:25 250 mg ONCE ONE Administration Ibuprofen 600 mg 11/01/22 10:24 11/01/22 10:31 Ibuprofen 600 Mg Tablet PO 11/01/22 10:25 600 mg ONCE ONE Administration Medical Decision Making Medical Decision Making MDM Narrative: 22-year-old female with history of obesity, dysfunctional uterine bleeding, history of right hydrosalpinx status post treatment for pelvic inflammatory disease 1 year ago presents to the ER for evaluation of recurrent vaginal bleeding for the last 2 months along with right-sided abdominal pain for the last 1 week. She states the pain is both in her right upper and lower abdominal areas. She is only tender in her right upper quadrant on examination. Ultrasounds were performed which show no recurrent hydrosalpinx, unremarkable pelvic ultrasound. Her right upper quadrant ultrasound shows findings consistent with acute cholecystitis. She does have leukocytosis of 13.7. She is also noted to have a UTI. She is hemodynamically stable and afebrile. Does not appear to be septic at this time. Will order IV Rocephin and Flagyl for intra-abdominal and UTI coverage. Case was discussed via tiger text with Dr. Noel who will admit for acute cholecystitis. Her H&H did down trend some from her baseline but no where near needing a transfusion. She was recently started on OCPs as an outpatient. No acute intervention for her vaginal bleeding aside from monitoring her blood counts. She will need to follow up with document review attorney as an outpatient. Plan to admit for acute cholecystitis. Patient updated on plan of care. Differential Diagnosis Differential Diagnoses: The differential diagnosis associated with the presentation includes TOA, recurrent hydrosalpinx, PID, cholecystitis, biliary colic, kidney stone Admission/Observation Consideration of admission/observation: Escalation of care including admission/observation considered Consult Healthcare Provider Management of the patient was discussed with: Licensed Mental Health Counselor Dr. Noel Lab Data [facility] Lab Attestation statement: I reviewed the patient's lab results. leukocytosis, worsening anemia due to blood loss, thrombocytosis, normal LFTs 11/01/22 08:59 11/01/22 08:59 Labs: Lab Results 11/01/22 11/01/22 11/01/22 Range/Units 08:59 08:59 09:13 WBC 13.7 H (4.8-10.8) X10*3/uL RBC 4.46 (4.20-5.50) X10*6/uL Hgb 11.5 L (12.0-16.0) g/dl Hct 35.8 L (37.0-47.0) % MCV 80.3 (80.0-98.0) fL MCH 25.8 L (27.0-33.0) pg MCHC 32.1 (31.0-35.0) g/dl RDW 14.6 (11.0-16.0) % Plt Count 409 H (160-400) X10*3/uL MPV 8.8 L (9.4-12.3) fL Immature Gran % (Auto) 0.3 (0.0-0.4) % Neut % (Auto) 66.7 (45-73) % Lymph % (Auto) 27.8 (20-40) % Lane % (Auto) 4.0 (2-11) % Eos % (Auto) 0.9 (0-4) % Baso % (Auto) 0.3 (0-2) % Lymph # (Auto) 3.8 (1.2-4.9) X10*3/uL Lane # (Auto) 0.6 (0.1-1.2) X10*3/uL Eos # (Auto) 0.1 (0.0-0.4) X10*3/uL Baso # (Auto) 0.0 (0.0-0.2) X10*3/uL Abs Immat Gran (auto) 0.04 H (0.00-0.03) X10*3/uL Absolute Neuts (auto) 9.1 H (2.0-8.3) x10*3/uL Absolute Nucleated RBC 0.000 (0.0-0.012) X10*3/uL Nucleated RBC % (auto) 0.0 (0.0-0.2) /100WBC Sodium 138 (135-145) mmol/L Potassium 4.0 (3.3-5.1) mmol/L Chloride 108 (96-108) mmol/L Carbon Dioxide 22 (22-29) mmol/L Anion Gap 12 (12-20) BUN 10 (9-16) mg/dL Creatinine 0.65 (0.5-1.4) mg/dL Estim Creat Clear Calc 181.3 Estimated GFR > 60 Random Glucose 108 (60-115) mg/dL Calcium 9.5 (8.4-10.2) mg/dL Magnesium 2.3 (1.6-2.6) mg/dL Total Bilirubin 0.3 (0.0-1.0) mg/dL Direct Bilirubin 0.2 (0.0-0.5) mg/dL AST 20 (5-31) U/L ALT 11 (0-31) U/L Alkaline Phosphatase 90 (39-117) U/L Total Protein 7.7 (6.5-8.0) g/dL Albumin 4.1 (3.5-5.0) g/dL Urine Color RED Urine Appearance Cloudy Urine pH 6.5 (5.0-9.0) Ur Specific [place] 1.025 (1.005-1.025) Urine Protein 300 (3+) H (Neg-Trace) mg/dL Urine Glucose (UA) Negative (Negative) mg/dL Urine Ketones 15 (Negative) mg/dL Urine Blood Large (3+) H (Negative) Urine Nitrite Positive H (Negative) Ur Leukocyte Esterase Small (1+) H (Negative) Urine RBC >20 H (0-2) /HPF Urine WBC 6-10 H (0-5) /HPF Ur Squamous Epith Cells 3-5 (0-2) /HPF Urine Bacteria None Seen (None Seen) Hyaline Casts 0-2 (0-2) /LPF Urine Test (NEGATIVE) 11/01/22 Range/Units 09:13 WBC (4.8-10.8) X10*3/uL RBC (4.20-5.50) X10*6/uL Hgb (12.0-16.0) g/dl Hct (37.0-47.0) % MCV (80.0-98.0) fL MCH (27.0-33.0) pg MCHC (31.0-35.0) g/dl RDW (11.0-16.0) % Plt Count (160-400) X10*3/uL MPV (9.4-12.3) fL Immature Gran % (Auto) (0.0-0.4) % Neut % (Auto) (45-73) % Lymph % (Auto) (20-40) % Lane % (Auto) (2-11) % Eos % (Auto) (0-4) % Baso % (Auto) (0-2) % Lymph # (Auto) (1.2-4.9) X10*3/uL Lane # (Auto) (0.1-1.2) X10*3/uL Eos # (Auto) (0.0-0.4) X10*3/uL Baso # (Auto) (0.0-0.2) X10*3/uL Abs Immat Gran (auto) (0.00-0.03) X10*3/uL Absolute Neuts (auto) (2.0-8.3) x10*3/uL Absolute Nucleated RBC (0.0-0.012) X10*3/uL Nucleated RBC % (auto) (0.0-0.2) /100WBC Sodium (135-145) mmol/L Potassium (3.3-5.1) mmol/L Chloride (96-108) mmol/L Carbon Dioxide (22-29) mmol/L Anion Gap (12-20) BUN (9-16) mg/dL Creatinine (0.5-1.4) mg/dL Estim Creat Clear Calc Estimated GFR Random Glucose (60-115) mg/dL Calcium (8.4-10.2) mg/dL Magnesium (1.6-2.6) mg/dL Total Bilirubin (0.0-1.0) mg/dL Direct Bilirubin (0.0-0.5) mg/dL AST (5-31) U/L ALT (0-31) U/L Alkaline Phosphatase (39-117) U/L Total Protein (6.5-8.0) g/dL Albumin (3.5-5.0) g/dL Urine Color Urine Appearance Urine pH (5.0-9.0) Ur Specific [place] (1.005-1.025) Urine Protein (Neg-Trace) mg/dL Urine Glucose (UA) (Negative) mg/dL Urine Ketones (Negative) mg/dL Urine Blood (Negative) Urine Nitrite (Negative) Ur Leukocyte Esterase (Negative) Urine RBC (0-2) /HPF Urine WBC (0-5) /HPF Ur Squamous Epith Cells (0-2) /HPF Urine Bacteria (None Seen) Hyaline Casts (0-2) /LPF Urine Test NEGATIVE (NEGATIVE) Independent Interpretation I performed an independent interpretation of an: Ultrasound Interpretation: US GB reviewed - wall thickness w/ large stone. agree w/ radiology read Radiology Impression Discussion of test interpretation with radiology: I have reviewed the radiologist's reading. Radiologist Impression: EXAMINATION: US ABDOMEN LIMITED CLINICAL INFORMATION: Right upper quadrant pain. COMPARISON: None available. TECHNIQUE: Real-time imaging of the right upper quadrant abdominal viscera. FINDINGS: PANCREAS: The visualized portion of the pancreas head and body are normal, portion of the pancreatic body and tail, not visualized are obscured by bowel gas. LIVER: Macro steatosis, hypoechoic area adjacent to the gallbladder, the location is common for focal fat sparing. The liver is normal in size. The liver contour is normal. No focal hepatic lesion. There is no intrahepatic biliary duct dilatation seen. GALLBLADDER: There is a gallstone 1.3 x 0.6 x 1.7 cm. There is thickening of the gallbladder wall measuring up to 5 mm, trace amount of pericholecystic fluid and tenderness pressing on the gallbladder, combined raising concern for cholecystitis. COMMON BILE DUCT: Normal in caliber measuring 0.3 cm in diameter. RIGHT KIDNEY: Normal. No hydronephrosis. No renal calculi or focal parenchymal lesions. The kidney measures 11.7 cm in maximum dimension. FREE FLUID: None. US/US abdomen limited IMPRESSION: ? -Concern for possible acute CHOLECYSTITIS, there is large gallstone, there is th ickening of the gallbladder wall, there is a trace amount of pericystic fluid and tenderness reported by the bibliographic services specialist pressing on the gallbladder Flores sign. Surgical evaluation recommended, HIDA scan could be utilized for confirmation if clinically indicated. ? - Hepatic steatosis. ? - Hypoechoic area in the liver adjacent to the gallbladder, the location is common for focal fat sparing. EXAMINATION:US pelvic complete CLINICAL INFORMATION:? Reason for Exam right sided abd pain, hx hydrosalpinx COMPARISON: No priors available. FINDINGS: UTERUS: The uterus is anteverted. Size: 8.5 x 4.2 x 5.9 cm. Uterine mass: There is no uterine mass. Cervix: Grossly unremarkable. Endometrium: No ultrasound evidence of endometrial lesion. endometrial thickness measures 1 cm ADNEXA: Normal Right ovary: Normal in size. Cystic structure in the right ovary 3.4 x 2.4 x 2.7 cm. Given its small size, in this patient age group considered normal. No follow-up is indicated. Left ovary: Normal in size. Doppler exam: Normal Doppler flow identified in both ovaries. FREE FLUID: Trace amount of free fluid. OTHER FINDINGS: None US/US pelvic complete IMPRESSION: ? - Cystic structure in the right ovary 3.4 cm, in this patient age group considered normal. No follow-up is indicated. ? - Ultrasound otherwise normal. External Record Review External record reviewed: Outpatient record, Prior outpatient labs and Prior ou tpatient radiology Prescription Management I considered prescription management with: Pain Medication and Antibiotic Critical Care Time Critical Care Time Critical Care Time: Yes Total Critical Care Time: 41 Attestation: I have personally provided critical care time exclusive of time spent on separately billable procedures. Time includes review of lab data, radiology results, discussion with consultants, and monitoring for potential decompensation. Intervention performed as documented. Discharge Plan Discharge Clinical Impression: Vaginal bleeding, Acute cholecystitis, UTI (urinary tract infection) Patient Disposition: Admitted As Inpatient
[2022-11-01 09:03] LABS: MANUAL DIFF FLAG NO
[2022-11-01 09:09] LABS: Basophils Percent Auto 0.3 % (0-2); Eosinophils Absolute Auto 0.1 X10*3/uL (0.0-0.4); Eosinophils Percent Auto 0.9 % (0-4); Hematocrit 35.8 % (37.0-47.0); Hemoglobin 11.5 g/dl (12.0-16.0); Imm Gran Abs Auto 0.04 X10*3/uL (0.00-0.03); Imm Gran Pct Auto 0.3 % (0.0-0.4); Lymphocytes Absolute Auto 3.8 X10*3/uL (1.2-4.9); Lymphocytes Percent Auto 27.8 % (20-40); Mean Corpuscular HGB Conc 32.1 g/dl (31.0-35.0); Mean Corpuscular Hemoglobin 25.8 pg (27.0-33.0); Mean Corpuscular Volume 80.3 fL (80.0-98.0); Mean Platelet Volume 8.8 fL (9.4-12.3); Monocytes Absolute Auto 0.6 X10*3/uL (0.1-1.2); Neutrophils Absolute Auto 9.1 x10*3/uL (2.0-8.3); Neutrophils Percent Auto 66.7 % (45-73); Platelet Count 409 X10*3/uL (160-400); Red Blood Count 4.46 X10*6/uL (4.20-5.50); Red Cell Distribution Width 14.6 % (11.0-16.0); White Blood Count 13.7 X10*3/uL (4.8-10.8)
[2022-11-01 09:32] LABS: Appearance Urine Cloudy; Color Urine RED; Glucose Urine UA Negative (Negative); Leukocyte Esterase Urine Small (1+) (Negative); Nitrite Urine Positive (Negative); PH 6.5 (5.0-9.0); Specific Gravity - Urine 1.025 (1.005-1.025); UMIC TRIGGER UACC YES; Urine Blood Large (3+) (Negative); Urine Ketones 15 mg/dL (Negative); Urine Protein 300 (3+) mg/dL (Neg-Trace)
[2022-11-01 09:33] LABS: UPreg QC Valid YES; Urine Pregnancy NEGATIVE (NEGATIVE)
[2022-11-01 09:37] LABS: Alanine Aminotransferase 11 U/L (0-31); Albumin Level 4.1 g/dL (3.5-5.0); Alkaline Phosphatase 90 U/L (39-117); Anion Gap 12 (12-20); Aspartate Amino Transferase 20 U/L (5-31); Bilirubin Direct 0.2 mg/dL (0.0-0.5); Bilirubin Total 0.3 mg/dL (0.0-1.0); Blood Urea Nitrogen 10 mg/dL (9-16); Calcium 9.5 mg/dL (8.4-10.2); Carbon Dioxide 22 mmol/L (22-29); Chloride 108 mmol/L (96-108); Creatinine Clr Calc Pharmacy 181.3; Estimated Glomerular Filt Rate > 60; Glucose Random 108 mg/dL (60-115); Magnesium 2.3 mg/dL (1.6-2.6); Sodium 138 mmol/L (135-145); Total Protein 7.7 g/dL (6.5-8.0)
[2022-11-01 09:41] LABS: Bacteria Urine None Seen (None Seen); Hyaline Casts Urine 0-2 /LPF (0-2); RBC Urine >20 /HPF (0-2); UACC Culture Trigger YES
--- NOTE | 2022-11-01 10:26 | PC.NURSE ---
pt has bled through one pad since she has come to the ED.
[2022-11-01] MEDS: Ibuprofen 600 MG TABLET PO (10:31)
[2022-11-01] MEDS: cefTRIAXone sodium 1 GM in 0.9 % Sodium Chloride 50 ML IV (12:09)
[2022-11-01 12:25] LABS: Lactic Acid 0.7 mmol/L (0.5-2.0)
--- NOTE | 2022-11-01 13:23 | PHA.MEDREC ---
Pharmacy Consult ? Medication Reconciliation Pharmacy has completed the medication reconciliation.
[2022-11-01] MEDS: metroNIDAZOLE/NS 500 MG/100 ML PIGGYBACK 100 MG IV (13:28)
--- NOTE | 2022-11-01 13:32 | PC.NURSE ---
pt a&ox3. respirations even and unlabored. pt resting comfortably and medicated per mar. pt reports no pain at this time.
--- NOTE | 2022-11-01 14:58 | P.HPGS_ITS ---
History of Present Illness History of Present Illness Date of Service: 11/01/22 Chief complaint: abd pain/ back pain/ vag bleeding 2x months Narrative: Jaquelin Pinedo is a 22 year old female with a history of dysfunctional uterine bleeding who now has superimposed problem of right upper quadrant pain times 1-2 days and of increasing severity. Patient otherwise has regular bowel habits. She has never been jaundiced before. She is unclear if she has fatty food intolerance. CT was reviewed and patient evaluated Patient has leukocytosis, normal liver function test. Sonogram is consistent with acute cholecystitis. [facility] Past Medical History Medical History No known health problems Social History Social History Alcohol intake: never Smoked in Last 30 Days: No Use of substances other than those prescribed or required for medical reasons: No Substance Use Type: Marijuana Advance Directives: No Patient : No Meds Allergies Allergy/AdvReac Type Severity Reaction Status Date / Time No Known Allergies Allergy Verified 11/01/22 08:43 [No Known Allergies*] Home Medications Medication Instructions Recorded Confirmed Last Taken Type levonorgestrel-ethinyl estradiol 1 tab PO DAILY 11/01/22 11/01/22 10/31/22 History 0.1 mg-20 mcg tablet (Sronyx) Physical Exam Vital Signs: Vital Signs: Last Vital Signs Temp 98 F 11/01/22 09:15 Pulse 76 11/01/22 14:18 Resp 16 11/01/22 14:18 BP 122/56 L 11/01/22 14:18 Pulse Ox 99 11/01/22 14:18 O2 Del Method Room Air 11/01/22 14:18 BMI result Body Mass Index 41.7 Chest: Other: Chest breath sounds bilaterally, HS 1 in 2 GI: Other: Very corpulent abdomen. Marked right upper quadrant tenderness. Results Results Labs: Short CBC 11/01/22 Range/Units 08:59 WBC 13.7 H (4.8-10.8) X10*3/uL Hgb 11.5 L (12.0-16.0) g/dl Hct 35.8 L (37.0-47.0) % Plt Count 409 H (160-400) X10*3/uL BMP 11/01/22 08:59 Sodium 138 Potassium 4.0 Chloride 108 Carbon Dioxide 22 BUN 10 Creatinine 0.65 Calcium 9.5 Liver Function 11/01/22 Range/Units 08:59 Total Bilirubin 0.3 (0.0-1.0) mg/dL Direct Bilirubin 0.2 (0.0-0.5) mg/dL AST 20 (5-31) U/L ALT 11 (0-31) U/L Alkaline Phosphatase 90 (39-117) U/L Albumin 4.1 (3.5-5.0) g/dL Urine 11/01/22 11/01/22 Range/Units 09:13 09:13 Urine Color RED Urine Appearance Cloudy Urine pH 6.5 (5.0-9.0) Ur Specific [place] 1.025 (1.005-1.025) Urine Protein 300 (3+) H (Neg-Trace) mg/dL Urine Glucose (UA) Negative (Negative) mg/dL Urine Test NEGATIVE (NEGATIVE) Assessment and Plan (1) Acute cholecystitis: Status: Acute Plan Risks, benefits, alternatives laparoscopic possible open cholecystectomy reviewed the patient included but not limited to bleeding, infection, recurrence of symptoms, numbness, pain, scarring, bowel or duct injury or leak and the patient wishes to proceed. All questions were answered. Patient will be an add on case for this afternoon. Time Spent With Patient Time: Total time managing care of this patient today ____ minutes. Quality Stroke Does the patient have a stroke diagnosis?: No VTE Prior VTE?: No VTE Risk Level:: Surgical - low VTE Device Contraindication: Treatment Not Indicated VTE Drug Contraindication: Treatment Not Indicated Procedures Date of Service Date of Service: 11/01/22
--- NOTE | 2022-11-01 16:37 | HO.ANESPROP2 ---
HPI - Anesthesia Eval Consult details Narrative: Acute cholecystitis PMFSH Active Problems Active Problems: All Active Problems (Updated 11/01/22 @ 11:50 by BINA Escobedo) Vaginal bleeding (Acute) Acute cholecystitis (Acute) UTI (urinary tract infection) (Acute) Pelvic inflammatory disease (PID) (Acute) Past Medical History Medical History (Updated 11/01/22 @ 16:37 by Javi Collins MD) Morbid obesity No known health problems Family History Family history of problems with anesthesia: No Surgical History History of Problems with Anesthesia: No Social History Social History Alcohol intake: never Smoked in Last 30 Days: No Use of substances other than those prescribed or required for medical reasons: No Substance Use Type: Marijuana Advance Directives: No Patient : No Meds Allergies Allergy/AdvReac Type Severity Reaction Status Date / Time No Known Allergies Allergy Verified 11/01/22 08:43 [No Known Allergies*] Home Medications Medication Instructions Recorded Confirmed Last Taken Type levonorgestrel-ethinyl estradiol 1 tab PO DAILY 11/01/22 11/01/22 10/31/22 History 0.1 mg-20 mcg tablet (Sronyx) Exam Exam Date and Time: November 01, 2022 1637 Height,Weight and Vital Signs: Height 5 ft 7 in Weight 120.9 kg Last Vital Signs Temp 98.4 F 11/01/22 16:00 Pulse 74 11/01/22 16:00 Resp 16 11/01/22 16:00 BP 132/64 11/01/22 16:00 Pulse Ox 100 11/01/22 16:00 O2 Del Method Room Air 11/01/22 16:00 Pertinent Lab Results Pertinent Lab Results: Laboratory Tests 11/01/22 11/01/22 11/01/22 08:59 08:59 09:13 WBC 13.7 H RBC 4.46 Hgb 11.5 L Hct 35.8 L MCV 80.3 MCH 25.8 L MCHC 32.1 RDW 14.6 Plt Count 409 H MPV 8.8 L Immature Gran % (Auto) 0.3 Neut % (Auto) 66.7 Lymph % (Auto) 27.8 Hemphill % (Auto) 4.0 Eos % (Auto) 0.9 Baso % (Auto) 0.3 Lymph # (Auto) 3.8 [place]phill # (Auto) 0.6 Eos # (Auto) 0.1 Baso # (Auto) 0.0 Abs Immat Gran (auto) 0.04 H Absolute Neuts (auto) 9.1 H Absolute Nucleated RBC 0.000 Nucleated RBC % (auto) 0.0 Sodium 138 Potassium 4.0 Chloride 108 Carbon Dioxide 22 Anion Gap 12 BUN 10 Creatinine 0.65 Estim Creat Clear Calc 181.3 Estimated GFR > 60 Random Glucose 108 Lactic Acid Calcium 9.5 Magnesium 2.3 Total Bilirubin 0.3 Direct Bilirubin 0.2 AST 20 ALT 11 Alkaline Phosphatase 90 Total Protein 7.7 Albumin 4.1 Urine Color RED Urine Appearance Cloudy Urine pH 6.5 Ur Specific [place] 1.025 Urine Protein 300 (3+) H Urine Glucose (UA) Negative Urine Ketones 15 Urine Blood Large (3+) H Urine Nitrite Positive H Ur Leukocyte Esterase Small (1+) H Urine RBC >20 H Urine WBC 6-10 H Ur Squamous Epith Cells 3-5 Urine Bacteria None Seen Hyaline Casts 0-2 Urine Test 11/01/22 11/01/22 09:13 12:07 WBC RBC Hgb Hct MCV MCH MCHC RDW Plt Count MPV Immature Gran % (Auto) Neut % (Auto) Lymph % (Auto) Hemphill % (Auto) Eos % (Auto) Baso % (Auto) Lymph # (Auto) Hem[place] # (Auto) Eos # (Auto) Baso # (Auto) Abs Immat Gran (auto) Absolute Neuts (auto) Absolute Nucleated RBC Nucleated RBC % (auto) Sodium Potassium Chloride Carbon Dioxide Anion Gap BUN Creatinine Estim Creat Clear Calc Estimated GFR Random Glucose Lactic Acid 0.7 Calcium Magnesium Total Bilirubin Direct Bilirubin AST ALT Alkaline Phosphatase Total Protein Albumin Urine Color Urine Appearance Urine pH Ur Specific [place] Urine Protein Urine Glucose (UA) Urine Ketones Urine Blood Urine Nitrite Ur Leukocyte Esterase Urine RBC Urine WBC Ur Squamous Epith Cells Urine Bacteria Hyaline Casts Urine Test NEGATIVE Airway Mallampati Class: II TM Dist: >3cm Neck ROM: Full Loose/Missing/Broken Teeth: No Heart: RRR Lungs: CTA Assessment and Plan Assessment Anesthesia Assessment: Anesthesia Plan Discussed and Chart Reviewed Final Anesthetic Review Family History of Problems with Anesthesia: No History of Problems with Anesthesia: No NPO: Yes ASA Class: III Final Preanesthetic Review: No Changes in Pt Med Stat, Meds/Allgs Chart Reviewed, Consent Obtained/Reviewed and Anes Risks/Benef Reviewed Patient Risk: Intermediate Procedure Risk: Intermediate Anesthetic Plan Anesthetic Plan: GA Disposition: Standard PACU
--- NOTE | 2022-11-01 17:04 | PC.NURSE ---
report given to Joaquin in surgery.
--- NOTE | 2022-11-01 20:13 | W.PM.OPN ---
Operative Note Operative Note Date of Service: 11/01/22 Narrative: Preoperative diagnosis: [] Acute cholecystitis Postop diagnosis: [] Same Procedure [] laparoscopic cholecystectomy Surgeon: [] Bert Wright Sutures Residential Advisor: [] MD Dawit Type of Anesthesia: [] General Indication for surgery: [] Markedly edematous inflamed gallbladder with omental and gastric adhesion to it. Very intrahepatic gallbladder. Extremely corpulent abdomen. Findings: [] Patient brought to the operating room, placed in obtain supine position, after adequate level of general anesthesia was induced, the patient abdomen which was markedly corpulent was prepped and draped in usual sterile fashion. Using a supraumbilical curvilinear incision, Luis technique was used to insufflate the abdominal cavity to 15 mm of CO2. Upper midline and right subcostal ports were placed under direct laparoscopic view, and the patient was placed in reverse Trendelenburg position, tilted to the left. Findings were as noted above. Gallbladder was initially decompressed with aspirating device, and then grasped using laparoscopic graspers and retracted superiorly and laterally. This was a very difficult case secondary to the patient's marked obesity along with a tremendously intrahepatic gallbladder and very redundant right and left lobes of the liver obscuring vision.. Omental and gastric soft adhesions were swept off the gallbladder. It was then grasped using laparoscopic graspers, and retracted superiorly and laterally. Common bile duct was identified and preserved throughout the procedure. Cystic artery and cystic duct reach identified in a markedly inflamed hilum. Each was traced directly into the gallbladder, skeletonized, circumferentially dissected out and critical view obtained. Each was clipped proximally x2, distally x1, and transected. Gallbladder, which as noted above, was appreciably intrahepatic was then cauterized from the gallbladder fossa using Bovie. Specimen was placed in an Endo-Catch bag, a retrieved through the umbilical port. The abdominal cavity was very copiously irrigated and secured hemostasis. All ports were removed under direct laparoscopic view. Wounds were closed in the following manner; umbilical wound had its fascia reapproximated using interrupted 0 Vicryl sutures. Skin wounds were closed using subcuticular 4-0 Vicryl sutures followed by Steri-Strips and sterile dressings. Wounds were infiltrated 0.5% Marcaine at completion. Sponge, needle, and instrument counts were reported to be correct. Patient tolerated the procedure well and emerged from anesthesia in stable condition. EBL minimal
[2022-11-01] MEDS: HYDROmorphone HCl 0.5 MG/0.5 ML SYRINGE IVPUSH ×2 (20:20→20:25)
[2022-11-01] MEDS: fentaNYL citrate/PF 100 MCG/2 ML VIAL 25 MCG IVPUSH ×2 (20:30→20:35)
[2022-11-01] MEDS: Piperacillin Sodium/Tazobactam 4.5 GM in 0.9 % Sodium Chloride 100 ML IV (21:30)
[2022-11-01] MEDS: Dextrose 5 % and 0.45 % NaCl 1,000 ML 100 ML IVCONT (21:30)
[2022-11-02 01:48] VITALS: BP 118/56; TEMP 36.1; O2SAT 95
[2022-11-02] MEDS: Piperacillin Sodium/Tazobactam 4.5 GM in 0.9 % Sodium Chloride 100 ML IV ×2 (02:34→08:17)
[2022-11-02 02:50] VITALS: BP 133/61; PULSE 73; RESP 16; TEMP 36; O2SAT 98
[2022-11-02] MEDS: HYDROmorphone HCl 0.5 MG/0.5 ML SYRINGE IVPUSH ×2 (03:05→07:44)
[2022-11-02 03:37] VITALS: RESP 16
[2022-11-02] MEDS: Dextrose 5 % and 0.45 % NaCl 1,000 ML 100 ML IVCONT (06:08)
--- NOTE | 2022-11-02 06:25 | PC.NURSE ---
Patient has an order for continuous oxygen monitory. Finger probe connector unavailable, searched other floors but non available. Nursing supervisor pipe joints Ingris aware. Patient is on room air, in no apparent respiratory distress, oxygen within normal limits.
[2022-11-02 07:10] VITALS: BP 150/80; PULSE 81; RESP 16; TEMP 36.1; O2SAT 99
[2022-11-02] MEDS: Acetaminophen 325 MG TABLET 650 MG PO ×2 (09:54→15:52)
--- NOTE | 2022-11-02 15:40 | MHC.CM.PN ---
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
[2022-11-02 15:43] VITALS: BP 142/76; PULSE 81; RESP 16; TEMP 36.1; O2SAT 98
--- NOTE | 2022-11-02 15:46 | P.PNGS_ITS ---
Subjective Subjective Date of Service: 11/02/22 Interval history: Uneventful evening aside from incisional discomfort. Tolerating diet. Out of bed, ambulating. Patient wishes to be discharged home. Physical Exam Vital Signs: Vital Signs: Last Vital Signs Temp 97 F 11/02/22 15:43 Pulse 81 11/02/22 15:43 Resp 16 11/02/22 15:43 BP 142/76 H 11/02/22 15:43 Pulse Ox 98 11/02/22 15:43 O2 Del Method Room Air 11/02/22 15:43 O2 Flow Rate 2 11/02/22 01:48 BMI result Body Mass Index 43.8 Eyes: Other: Anicteric GI: Other: Abdomen corpulent, soft, all dressings clean dry and intact. Objective Data Active Medications Acetaminophen (Acetaminophen 325 Mg Tablet) 650 mg PO Q6H PRN PRN Reason: Pain, Mild (Pain Scale 1-3) Last Admin: 11/02/22 09:54 Dose: 650 mg Documented By: ERICA Al Hydroxide/Mg Hydroxide (Magnesium Hydrox/Alum Hydrox 30 Ml Oral.Susp) 30 ml PO Q4H PRN PRN Reason: Heartburn/Nausea Fentanyl (Fentanyl Citrate/Pf 100 Mcg/2 Ml Vial) 25 mcg IVPUSH Q5M PRN; Protocol PRN Reason: Pain, Moderate(Pain Scale 4-6) Last Admin: 11/01/22 20:35 Dose: 25 mcg Documented By: MEGAN Hydromorphone HCl (Hydromorphone Hcl 0.5 Mg/0.5 Ml Syringe) 0.5 mg IVPUSH Q5M PRN; Protocol PRN Reason: Pain, Severe (Pain Scale 7-10) Last Admin: 11/01/22 20:25 Dose: 0.5 mg Documented By: MEGAN Hydromorphone HCl (Hydromorphone Hcl 0.5 Mg/0.5 Ml Syringe) 0.5 mg IVPUSH Q4H PRN; Protocol PRN Reason: Pain, Severe (Pain Scale 7-10) Last Admin: 11/02/22 07:44 Dose: 0.5 mg Documented By: ERICA Dextrose/Sodium Chloride (D51/2ns) 1,000 mls @ 100 mls/hr IVCONT .Q10H CHERRI Last Admin: 11/02/22 06:08 Dose: 100 mls/hr Documented By: SINGHORALB Piperacillin Sod/Tazobactam (Sod 4.5 gm/ Sodium Chloride) 100 mls @ 200 mls/hr IV Q6H [facility] Last Infusion: 11/02/22 08:55 Dose: 0 mls/hr Documented By: ERICA Magnesium Hydroxide (Milk Of Magnesia 30 Ml Oral.Susp) 30 ml PO DAILY PRN PRN Reason: Constipation Ondansetron HCl (Ondansetron Hcl 4 Mg/2 Ml Vial) 4 mg IVPUSH Q8H PRN PRN Reason: Nausea and Vomiting Sodium Chloride (0.9 % Sodium Chloride Flush 3 Ml Syringe) 3 ml IVFLUSH QSHIFT [facility] Last Admin: 11/02/22 07:00 Dose: Not Given Documented By: ERICA Non-Admin Reason: IV Running Labs 11/01/22 08:59 11/01/22 08:59 Microbiology Microbiology Results: Microbiology 11/01/22 12:07 Blood Culture - Preliminary Blood - Venous No growth after 24 hours. 11/01/22 12:07 Blood Culture - Preliminary Blood - Venous No growth after 24 hours. 11/01/22 Unknown Urine Culture - Final Urine clean catch - Urine connors top No growth. Procedures Date of Service Date of Service: 11/02/22 Progress Note: A&P Assessment and plan (1) Acute cholecystitis: Status: Acute Plan Discharge today. Instructions provided. Time Spent With Patient Time: Total time managing care of this patient today ____ minutes. Quality Stroke Does the patient have a stroke diagnosis?: No VTE Prior VTE?: No VTE Risk Level:: Surgical - low VTE Device Contraindication: Treatment Not Indicated VTE Drug Contraindication: Treatment Not Indicated
--- NOTE | 2022-11-02 15:47 | PM.DS ---
DS: Providers Provider Date of Service: 11/02/22 Date of admission: 11/01/22 20:02 Date of discharge: 11/02/22 Primary care physician: Unknown Physician Admitting clinician: Gilberto Noel Attending physician on admission: Bert DS: Diagnosis Discharge Diagnosis (1) Acute cholecystitis: Start date: 11/01/22 Status: Acute DS: Summary Status at Discharge Functional status at discharge: independent ambulation Time Spent with Patient Time attestation: Total time managing care of this patient today ____ minutes. Discharge coordination time: Less than 30 minutes Specific discharge activities: Patient is a 22-year-old female presented here with acute cholecystitis. She had workup which confirmed the clinical diagnosis. Patient was admitted, placed NPO with IV hydration underwent uneventful laparoscopic cholecystectomy on 11/01/2022. For specifics intraoperative findings, please refer to op note Patient's postoperative course been exemplary. He has been afebrile stable vital signs. She is dying of diabetes am leg minimal assistance. She has mild incisional discomfort. Current plan is discharge patient home with follow-up medial proximal weeks time. She has been given discharge instructions analgesics and so forth. Any issues or concerns, patient instructed to call the office or return to the hospital. Quality: Safe Use of Opioids Does Pt have an Active Cancer Diagnosis on the Problem List?: No Quality: Stroke Does the patient have a stroke diagnosis?: No Physical Exam Vital Signs: Vital Signs: Last Vital Signs Temp 97 F 11/02/22 15:43 Pulse 81 11/02/22 15:43 Resp 16 11/02/22 15:43 BP 142/76 H 11/02/22 15:43 Pulse Ox 98 11/02/22 15:43 O2 Del Method Room Air 11/02/22 15:43 O2 Flow Rate 2 11/02/22 01:48 BMI result Body Mass Index 43.8 Eyes: Other: Anicteric GI: Other: Abdomen soft , all dressings clean dry and intact DS: Data Data Completed and Pending Pending studies at discharge: Pending at discharge 11/01/22 19:33 Surgical [PTH] Routine Labs on day of discharge: Preliminary micro results at discharge 11/01/22 12:07 Blood Culture - Preliminary Blood - Venous No growth after 24 hours. 11/01/22 12:07 Blood Culture - Preliminary Blood - Venous No growth after 24 hours. Discharge Plan Discharge Anticipated Discharge Date/Time: 11/02/22 16:00 Patient Disposition: Home, Self-Care Discharge Diagnosis: Acute cholecystitis, vaginal bleeding Referrals: Gilberto Noel MD [Physician] - 1 Week Physician,Grant J [Primary Care Provider] - 1 Week Discharge Medications: New hydrocodone-acetaminophen 5-325 mg tablet 1 tab PO Q4-6H PRN (Reason: pain) Qty: 30 0RF Rx Instructions: Partial Fill upon patient request. sulfamethoxazole-trimethoprim [Bactrim DS] 800-160 mg tablet 1 tab PO BID Qty: 14 0RF Continued levonorgestrel-ethinyl estrad [Sronyx] 0.1-20 mg-mcg tablet 1 tab PO DAILY Discharge Orders: Discharge Order (Routine); Ordered 11/02/22 Ordered By: Gilberto Noel Diet: Advance to usual diet Activity on Discharge: No heavy lifting Stand Alone Forms: Patient Portal Discharge page Activity Restrictions/Additional Instructions: Ice to wound 20 minutes several times today and tomorrow. May shower in 2 days. Remove outside dressing only. Leave Steri-Strips intact. No strenuous activities Care Plan Goals: Return Baseline Health Concerns: Follow-up with bid analyst regarding vaginal bleeding Plan of Treatment: As noted discharge instructions Assessment: Stable
--- NOTE | 2022-11-02 16:10 | HO.POSTANES ---
Post Anesthesia Evaluation Post Anesthesia Evaluation Date of Service: 11/02/22 Vital Signs: Vital Signs Temp Pulse Resp BP Pulse Ox O2 Del Method 11/02/22 15:43 97 F 81 16 142/76 H 98 Room Air 11/02/22 07:10 97 F 81 16 150/80 H 99 Room Air Anesthesia: General Endotracheal-GETA Mental Status: Awake Pain Control: Satisfactory Nausea/Vomiting: None Hydration: Adequate Anesthesia-Related Issues: No Anes. Related Issues
== END 2022-11-02 16:05 | disposition home or self-care (01) | DRG 263 ==
LOC: HO.ED 11:50 → HO.EDOVER 20:24 → HO.S3 20:28
PROVIDERS: Physician Assistant; Admitting Provider Surgery; Emergency Provider Student in an Organized Health Care Education/Training Program; PCP Internal Medicine; Visit Provider Surgery
PROC: 0FT44ZZ Resection of Gallbladder, Percutaneous Endoscopic Approach (ICD-10-PCS; CPT 47562; principal; 2022-11-01 15:00)
DX: K81.0 Acute cholecystitis (principal); E66.9 Obesity, unspecified; Z68.41 Body mass index [BMI] 40.0-44.9, adult; Z79.3 Long term (current) use of hormonal contraceptives
CPT/HCPCS: 36415; 76705; 76856; 80048; 80076; 81001; 81025; 83605; 83735; 85025; 87040; 87086; 88304; 99284; J0131; J0696; J1100; J1170; J2250; J2405; J2543; J2550; J3010

== ENCOUNTER → 2022-11-01 08:48 | Outpatient (BNV) | payer OTHER, SELFPAY | PROVIDERS: Emergency Provider Student in an Organized Health Care Education/Training Program; Visit Provider Surgery | DX: K81.0 Acute cholecystitis (principal) | CPT/HCPCS: 47562; 99024; 99232 ==

== ENCOUNTER 2022-11-11 14:21 | Outpatient (AMB) | payer OTHER, SELFPAY ==
--- NOTE | 2022-11-11 14:26 | A.OFFVIS_ITS ---
Intake Vital Signs 11/11/22 14:27 Height 5 ft 7 in Weight 265 lb BMI 41.5 BP 122/68 Blood Pressure Location Rt brachial Position Sitting Pulse 80 Intake Visit Reasons: s/p laparoscopic cholecystectomy, [facility] inpt Intake Note: Patient here s/p lap jenna. Reports redness and tenderness at incision in belly. Still taking rx pain meds and bactrim. Slasher Sawyer Required: No Accompanied by: Self / Same As Patient Allergies No Known Allergies [No Known Allergies*] Allergy (Verified 11/11/22 14:28) HPI HPI Comments History of Present Illness Details Patient presents for follow-up status post lap choly. She is tolerating a diet. Having normal bowel habits. Her incisional discomfort is improving. Activity level is also improving. [facility] Medical History Morbid obesity No known health problems Surgical History (Updated 11/11/22 @ 14:53 by Gilberto Noel MD) History of laparoscopic cholecystectomy (11/01/22) Social History Household Members: Significant Other Housing: Apartment Alcohol intake: never Patient Tobacco Use Status: Never used Tobacco Substance Use Type: Marijuana service: No Female Reproductive History Menstrual Age of Menarche: 12 Physical Exam Vital Signs: Last Vital Signs Pulse 80 11/11/22 14:27 BP 122/68 11/11/22 14:27 BMI result Body Mass Index 41.5 Eyes Other: Anicteric GI Other: Abdomen soft, benign, all wounds clean dry and intact healing uneventfully Assessment & Plan Assessment & Plan (1) History of laparoscopic cholecystectomy: Onset Date: 11/01/22 Comment: Dr. Gilberto Noel Code(s): Z90.49 - Acquired absence of other specified parts of digestive tract Plan Patient has been given local instructions, and will follow-up p.r.n. patient given no for work which she wishes to start but with the restrictions of light duty for 3 weeks Coding Level of Care Code Global (31658) Diagnoses History of laparoscopic cholecystectomy Z90.49
[2022-11-11 14:27] VITALS: BP 122/68; PULSE 80; BMI 41.5
== END 2022-11-11 15:06 | disposition home or self-care (01) ==
PROVIDERS: PCP Internal Medicine; Visit Provider Surgery
DX: Z90.49 Acquired absence of other specified parts of digestive tract (principal)
CPT/HCPCS: 99024

== ENCOUNTER → 2022-11-11 14:21 | Outpatient (BNVA) | payer OTHER, SELFPAY | PROVIDERS: PCP Internal Medicine; Visit Provider Surgery ==